=== PATIENT | male | born 1995 | race Caucasian/White ===

== ENCOUNTER 2016-08-22 18:48 | Emergency (ER) | payer BC ==
[~2016-08-22] VITALS: Ht 182.9 cm; Wt 72.6 kg
[2016-08-22] MEDS ORDERED: FLUORESCEIN OPHTH TEST STRIP. ONE (20:20)
[2016-08-22] MEDS ORDERED: TETRACAINE 0.5% OPHTH SOLUTION 4ML BOTTLE. ONE (20:20)
[2016-08-22 20:21] VITALS: BP 149/72
[2016-08-22] MEDS ORDERED: OFLO5DRO EACHEYE (20:55)
--- NOTE | 2016-08-22 20:55 | PHYS DOC ---
Past Medical History Past Medical History: No Pertinent History Past Surgical History: No Surgical History Additional Information: nonsmoker Alcohol Use: Occasionally Drug Use: Marijuana Adult General Chief Complaint Chief Complaint: EYE PROBLEMS HPI HPI Patient is a 20 year old male who presents with right eye redness for 4 days. Reports matting of the eyelids in the morning and clear drainage from the eye during the day. He states that it is itchy and painful. He has photophobia as well. He denies any injury to the eye or foreign body sensation. He does not have any vision changes or fevers. He does wear contact lenses. He has not changed the lenses for approximately month and a half. He does not have a PCP. Review of Systems Review of Systems Constitutional: Denies fever or chills. [] Eyes: Denies change in visual acuity. Reports right eye redness, drainage, pain , and photophobia. HENT: Denies ear pain, nasal congestion or sore throat. [] Integument: Denies rash or skin lesions. [] Neurologic: Denies headache, focal weakness or sensory changes. [] Current Medications Current Medications Current Medications Medications (Trade) Dose Ordered Sig/Krissy Start Time Stop Time Status Last Admin Dose Admin Fluorescein Sodium (Ful-Ryanne) 1 strip STK-MED ONCE 08/22/16 20:20 08/22/16 20:21 DC Tetracaine HCl (Tetracaine) 40 drop STK-MED ONCE 08/22/16 20:20 08/22/16 20:21 DC Allergies Allergies Allergies Coded Allergies Type Severity Reaction Last Updated Verified No Known Drug Allergies 08/22/16 No Physical Exam Physical Exam Constitutional: Well developed, well nourished, no acute distress, non-toxic appearance. [] HENT: Normocephalic, atraumatic, bilateral external ears normal, oropharynx moist, no oral exudates, nose normal. [] Eyes: PERRLA, EOMI. Right eye conjunctival injection diffusely with clear drainage. There is no fluorescein uptake. There is no foreign body identified. Visual acuity: OS 20/25, OD 20/50, OU 20/25. Skin: Warm, dry, no erythema, no rash. [] Neurologic: Alert and oriented X 3, normal motor function, normal sensory function, no focal deficits noted. [] Psychologic: Affect normal, judgement normal, mood normal. [] Current Patient Data Vital Signs Vital Signs Date Time Temp Pulse Resp B/P Pulse Ox O2 Delivery O2 Flow Rate FiO2 08/22/16 20:21 98.5 82 18 100 Room Air 98.5 EKG EKG [] Radiology/Procedures Radiology/Procedures [] Course & Med Decision Making Course & Med Decision Making Pertinent Labs and Imaging studies reviewed. (See chart for details) [] Dragon Disclaimer Dragon Disclaimer This electronic medical record was generated, in whole or in part, using a voice recognition dictation system. Departure Departure Impression: Primary Impression: Conjunctivitis Disposition: HOME, SELF-CARE Condition: STABLE Referrals: SAQIB CHAVEZ MD Patient Instructions: Bacterial Conjunctivitis, [id number] Additional Instructions: You were seen for an infection in your eye. This is likely due to your contact lenses. Please do not wear contact lenses until the infection is completely cleared. Use a new pair of lenses. Please use the prescribed eyedrops as directed. Please follow-up with the collection technician listed below if you have any change in her vision or other concerns with your eye. Return to the emergency department if you have any new or concerning symptoms. Scripts Ofloxacin (Ocuflox)5 Ml Drops1 Drop EACHEYE Q4HRS W/A 7 Days Use every 4 hours while awake for the first 2 days, then use every 6 hours for the next 5 days. Prov:ZENA PRINCE 08/22/16 Problem Qualifiers Primary Impression: Conjunctivitis Conjunctivitis type: acute Acute conjunctivitis type: bacterial Laterality : right Qualified Code: H10.31 - Unspecified acute conjunctivitis, right eye ZENA PRINCE Aug 22, 2016 20:55
== END 2016-08-22 20:59 | disposition home or self-care (01) ==
LOC: ER 18:48
DX: H10.9 Unspecified conjunctivitis (principal); F12.10 Cannabis abuse, uncomplicated
CPT/HCPCS: 99283